=== PATIENT | male | born 1985 | race Two or more races ===

== ENCOUNTER 2022-08-03 19:36 | Emergency (ER) | payer SELFPAY ==
[~2022-08-03] VITALS: Ht 193 cm; Wt 240.0 kg
[2022-08-03] MEDS ORDERED: ONDANSETRON HCL 4 MG/2 ML VIAL ONE (20:10)
[2022-08-03] MEDS ORDERED: fentaNYL CITRATE 5 ML ONE ×2 (20:10→21:35)
[2022-08-03] MEDS ORDERED: ONDANSETRON HCL 4 MG/2 ML VIAL IV ONE (20:15)
[2022-08-03] MEDS ORDERED: fentaNYL CITRATE 100 MCG/2 ML VL IV ONE (20:15)
[2022-08-03] MEDS ORDERED: IOHEXOL 350 MG/ML 100ML IJ ONE (20:23)
[2022-08-03 21:30] VITALS: BP 121/79
[2022-08-03] MEDS ORDERED: LIDOCAINE 2%HCL (LOCAL ANESTH.) INJ 20ML MDV ONE (21:30)
[2022-08-03] MEDS ORDERED: LIDOCAINE 2%HCL (LOCAL ANESTH.) INJ 10ml MDV IJ ONE (22:15)
== END 2022-08-03 21:49 | disposition hospice, inpatient (51) ==
LOC: ER 19:36
DX: S31.112A Laceration without foreign body of abdominal wall, epigastric region without penetration into peritoneal cavity, initial encounter (principal); S21.112A Laceration without foreign body of left front wall of thorax without penetration into thoracic cavity, initial encounter; S01.312A Laceration without foreign body of left ear, initial encounter; S01.91XA Laceration without foreign body of unspecified part of head, initial encounter; Z90.49 Acquired absence of other specified parts of digestive tract; F11.10 Opioid abuse, uncomplicated; W45.8XXA Other foreign body or object entering through skin, initial encounter; Y93.89 Activity, other specified; Y92.89 Other specified places as the place of occurrence of the external cause; Y99.8 Other external cause status
CPT/HCPCS: 32551; 36556; 70496; 71260; 74177; 96374; 96375; 99291; J2405; J3010; Q9967